=== PATIENT | female | born 1955 | race Two or more races ===

== ENCOUNTER 2018-07-17 19:09 | Emergency (ER) | payer BC ==
[~2018-07-17] VITALS: Ht 157.5 cm; Wt 80.0 kg
[~2018-07-17 19:09] MED LIST: AMLO5TAB4 PO; ERGO500013 PO; LEVO125T7 PO; MET25 PO; MTF1000T PO; RANI150T35 PO; SITA100T11 PO; VENL-42 PO
[2018-07-17 19:13] VITALS: Ht 157.5 cm; Wt 80.0 kg
[2018-07-17] MEDS ORDERED: CEFEPIME 2GM/50 ML (PMX) 50 ML IVPB STA (19:24)
[2018-07-17] MEDS ORDERED: SODIUM CHLORIDE 0.9% 1L BAG IV* STA (19:24)
[2018-07-17] MEDS ORDERED: ACETAMINOPHEN 500 MG TAB PO STA (19:25)
[2018-07-17] MEDS ORDERED: IBUPROFEN 800 MG TAB PO ONE (19:30)
[2018-07-17] MEDS ORDERED: VANCOMYCIN 1 GM (PMX) 250 ML IVPB ONE (19:30)
--- NOTE | 2018-07-17 21:01 | ERD ---
ER Documentation Chief Complaint Chief Complaint weakness x 3 days HPI This is a 63-year-old female with a history of [id number] diabetes mellitus and hypertension. The patient presents to the emergency department complaining of 5 days of generalized weakness and tactile fever shaking and chills. According to her daughter the patient developed her symptoms Friday, 5 days prior to arrival where she felt myalgias. She had a decrease in appetite. She did not take any antipyretics prior to arrival. She has not had a cough. The patient has a history of 1 kidney she had developed a kidney infection roughly 30 years prior to arrival that required a nephrectomy. The patient complains of mild frequency and urgency but no dysuria. She has been compliant with all of her medications. She denies any abdominal pain. She has no shortness of breath at rest or exertion. She denies any recent hospitalizations. She denies any recent sick contacts per ROS All systems reviewed and are negative except as per history of present illness. Medications Home Meds Active Scripts Acetaminophen* (Tylophen*) 500 Mg Capsule, 2 CAP PO Q8H PRN for PAIN AND OR ELEVATED TEMP, #20 CAP Prov:DEAN WILKERSON MD 07/17/18 Ibuprofen* (Motrin*) 800 Mg Tab, 800 MG PO Q6H PRN for PAIN AND OR ELEVATED TEMP, #30 TAB Prov:DEAN WIKLERSON MD 07/17/18 Cephalexin* (Keflex*) 500 Mg Capsule, 500 MG PO QID for 10 Days, CAP Prov:DEAN WILKERSON MD 07/17/18 Reported Medications Glimepiride* (Glimepiride*) 4 Mg Tablet, 4 MG PO WITH BREAKFAST DINNE, TAB 07/17/18 Zolpidem Tartrate* (Zolpidem Tartrate*) 10 Mg Tablet, 10 MG PO QHS PRN for INSOMNIA, #30 TAB 07/17/18 Trazodone Hcl* (Trazodone Hcl*) 50 Mg Tablet, 50 MG PO QAM, #60 TAB 07/17/18 Sitagliptin* (Januvia*) 100 Mg Tablet, 100 MG PO DAILY, #30 TAB 07/17/18 Methotrexate* (Methotrexate*) 2.5 Mg Tab, 10 MG PO Q TUES, TAB 07/17/18 Metformin Hcl* (Metformin Hcl*) 1,000 Mg Tablet, 1000 MG PO WITH BREAKFAST DINNE, #60 TAB 07/17/18 Ergocalciferol (Vitamin D2) (VITAMIN D2) 50,000 Unit Capsule, 34484 UNIT PO Q THURS, CAP 07/17/18 Amlodipine Besylate* (Norvasc*) 5 Mg Tablet, 5 MG PO DAILY, TAB 07/17/18 Discontinued Reported Medications Methotrexate* (Methotrexate*) 2.5 Mg Tab, 10 MG PO QTUE, TAB TAKE 4 TABLETS BY MOUTH EVERY Friday03/06/18 Ergocalciferol (Vitamin D2) (VITAMIN D2) 50,000 Unit Capsule, 25330 UNIT PO QTUE, CAP 03/06/18 Venlafaxine Hcl* (Venlafaxine Hcl ER*) 37.5 Mg Cap.er.24h, 37.5 MG PO DAILY, CAP 03/06/18 Sitagliptin* (Januvia*) 100 Mg Tablet, 100 MG PO DAILY, #30 TAB 03/06/18 Metformin* (Glucophage*) 1,000 Mg Tablet, 1000 MG PO BID, #60 TAB 03/06/18 Levothyroxine Sodium* (Levothyroxine Sodium*) 125 Mcg Tablet, 125 MCG PO BEFORE BREAKFAST, #30 TAB 03/06/18 Amlodipine Besylate* (Norvasc*) 5 Mg Tablet, 5 MG PO DAILY, TAB 03/06/18 Discontinued Scripts Ranitidine Hcl* (Zantac*) 150 Mg Tablet, 150 MG PO HS, #30 TAB Prov:KAEL PEDERSEN DO 03/06/18 Allergies Allergies: Coded Allergies: No Known Allergy (Unverified , 07/17/18) PMhx/Soc History of Surgery: Yes (R kidney removal, hyserectomy) Anesthesia Reaction: No Hx Neurological Disorder: No Hx Respiratory Disorders: No Hx Cardiac Disorders: No Hx Psychiatric Problems: No Hx Miscellaneous Medical Probl: Yes (DM) Hx Alcohol Use: No Hx Substance Use: No Hx Tobacco Use: No Smoking Status: Never smoker Physical Exam Vitals Vital Signs Date Temp Pulse Resp B/P (MAP) Pulse Ox O2 O2 Flow FiO2 Time Delivery Rate 07/17/18 99.8 98 18 132/86 96 Room Air 20:52 (101) 07/17/18 Nasal 2 20:03 Cannula 07/17/18 102.2 19:53 07/17/18 102.2 117 24 128/90 92 19:13 (103) Physical Exam Constitutional:Well-developed. Well-nourished. HEENT:Normocephalic. Atraumatic.Pupils were equal round reactive to light. Very dry mucous membranes.No tonsillar exudates. Neck: No nuchal rigidity. No lymphadenopathy. No posterior cervical spine tenderness or step-offs. Respiratory: Not using accessory muscles of respiration.Lungs were clear to auscultation bilaterally. No rhonchi. No rales. No wheezing. Cardiovascular: Regular rate regular rhythm.No murmurs. No rubs were appreciated.S1, S2 normal. Distal pulses are palpable 2+ bilaterally. GI: Abdomen was soft. Nontender. Non Distended. No pulsatile abdominal masses or bruits. No rebound. No guarding. Bowel sounds were present and normal. Muscle skeletal: Full range of motion of both the upper and lower extremities bilaterally.Normal muscle tone.No assymetrical calf tenderness or swelling. Skin: No petechia, no purpura. No lesions on the palms or the soles of the feet. No maculopapular rash. NEURO: Patient was alert, awake, orientated x3.No facial droop. Gait observed and normal with no ataxia.Speech had regular rate and rhythm. No focal neurological deficits. Result Diagram: 07/17/18194107/17/181941 Results 24 hrs Laboratory Tests Test 07/17/18 19:35 07/17/18 19:42 07/17/18 19:44 Urine Color YELLOW Urine Clarity CLOUDY Urine pH 6.0 Urine Specific [place] 1.012 Urine Ketones NEGATIVE mg/dL Urine Nitrite POSITIVE mg/dL Urine Bilirubin NEGATIVE mg/dL Urine Urobilinogen NEGATIVE mg/dL Urine Leukocyte Esterase 3+ Farhat/ul Urine Microscopic RBC 37 /HPF Urine Microscopic WBC > 182 /HPF Urine Squamous Epithelial Cells MODERATE /HPF Urine Bacteria MODERATE /HPF Urine Hemoglobin 2+ mg/dL Urine Glucose NEGATIVE mg/dL Urine Total Protein 1+ mg/dl White Blood Count 11.7 10^3/ul Red Blood Count 5.01 10^6/ul Hemoglobin 13.8 g/dl Hematocrit 41.2 % Mean Corpuscular Volume 82.2 fl Mean Corpuscular Hemoglobin 27.5 pg Mean Corpuscular 33.5 g/dl Hemoglobin Concent Red Cell Distribution Width 12.9 % Platelet Count 134 10^3/UL Mean Platelet Volume 13.0 fl Immature Granulocytes % 0.500 % Neutrophils % 78.9 % Lymphocytes % 7.6 % Monocytes % 12.8 % Eosinophils % 0.0 % Basophils % 0.2 % Nucleated Red Blood Cells % 0.0 /100WBC Immature Granulocytes # 0.060 10^3/ul Neutrophils # 9.2 10^3/ul Lymphocytes # 0.9 10^3/ul Monocytes # 1.5 10^3/ul Eosinophils # 0.0 10^3/ul Basophils # 0.0 10^3/ul Nucleated Red Blood Cells # 0.0 10^3/ul Prothrombin Time 13.4 Sec Prothrombin Time Ratio 1.0 INR International 1.01 Normalized Ratio Activated Partial Thromboplast 25.3 Sec Time Sodium Level 133 mmol/L Potassium Level 3.8 mmol/L Chloride Level 96 mmol/L Carbon Dioxide Level 25 mmol/L Anion Gap 12 Blood Urea Nitrogen 16 mg/dl Creatinine 0.99 mg/dl Est Glomerular Filtrat 56 mL/min Rate mL/min Glucose Level 314 mg/dl Calcium Level 9.0 mg/dl Total Bilirubin 0.5 mg/dl Direct Bilirubin 0.00 mg/dl Indirect Bilirubin 0.5 mg/dl Aspartate Amino 73 IU/L Transf (AST/SGOT) Alanine 70 IU/L Aminotransferase (ALT/SGPT) Alkaline Phosphatase 59 IU/L Troponin I < 0.012 ng/ml Total Protein 7.4 g/dl Albumin 3.8 g/dl Globulin 3.60 g/dl Albumin/Globulin Ratio 1.05 Amylase Level 89 U/L Lipase 229 U/L POC Venous Lactate 1.5 mmol/L Current Medications Medications Dose Sig/Ann Start Time Status Last (Trade) Ordered Route PRN Stop Time Admin Dose Reason Admin Sodium 2,400 ml BOLUS OVER 2 07/17/18 DC 07/17/18 Chloride HOURS STAT 19:24 19:53 (NS) IV* 07/17/18 19:25 Cefepime HCl 50 ml @ ONCE STAT 07/17/18 DC 07/17/18 100 mls/hr IVPB 19:24 19:59 07/17/18 19:53 Vancomycin 250 ml @ ONCE ONCE 07/17/18 DC 07/17/18 HCl 125 mls/hr IVPB 19:30 20:52 07/17/18 21:29 1,000 mg ONCE STAT 07/17/18 DC 07/17/18 Acetaminophen PO 19:25 19:53 (Tylenol 07/17/18 19:26 Tab) Ibuprofen 800 mg ONCE ONCE 07/17/18 DC 07/17/18 (Motrin) PO 19:30 19:53 07/17/18 19:31 Procedures/MDM This is 63-year-old female that presented to the emergency department Sirs criteria. Patient admitted placed on a chronic monitor continuous pulse oximetry and IV access was attempted by nursing. The patient's lactic acid was normal. However she had already received a 30 cc/kg bolus of normal saline and was started on antibiotics to treat sepsis of unclear etiology. The patient was hyperglycemic without ketosis and this was treated with IV fluids. 12 Lead EKG tracing ordered and reviewed by myself showed: Sinus tachycardia 120 bpm and no arrhythmia. AK interval normal. QRS duration normal. No ST segment elevation No ST segment depression. No changes consistent with acute ischemia. The patient is a significant urinary tract infection with pyelonephritis. Chest radiograph showed no infiltrates or pneumothorax. Observation Note: Time: 4 hours Family Hx: No Hypertension Evaluation: Multiple exams showed improving symptoms and no evidence of worsening of her symptoms. The patient stated she would prefer to be discharged and she was offered admission to the hospital. She stated she has good follow- up and she was now able to tolerate oral intake afebrile no longer tachycardic and her daughter and son were at bedside. She will be discharged home with Keflex. She was also given antipyretics. The patient was discharged home in fair condition. They were instructed to return to the emergency department at any time if there was any worsening of their condition. The patient stated they would follow up with their PCP in the next 24-48 hours to initiate a suitable medication regimen under the care of their PCP as well as to allow their PCP to monitor any drug reactions. The patient was discharged home with prescriptions after they gave informed consent to the new medication. They were also fully informed by myself on the adverse effects and adverse drug interactions in order to provide adequate safeguards to prevent possible adverse reactions to medications. Departure Diagnosis: Primary Impression: Pyelonephritis Additional Impression: Hyperglycemia without ketosis Condition: DEAN Leal MD Jul 17, 2018 21:01
[2018-07-17] MEDS ORDERED: AMLO5TAB4 PO (21:46)
[2018-07-17] MEDS ORDERED: ERGO500013 PO (21:46)
[2018-07-17] MEDS ORDERED: METF100010 PO (21:47)
[2018-07-17] MEDS ORDERED: MET25 PO (21:47)
[2018-07-17] MEDS ORDERED: TRAZ-111 PO (21:48)
[2018-07-17] MEDS ORDERED: ZOLP10TA5 PO (21:48)
[2018-07-17] MEDS ORDERED: SITA100T11 PO (21:48)
[2018-07-17] MEDS ORDERED: GLIM4TAB PO (21:49)
[2018-07-17] MEDS ORDERED: CEPH-443 PO (23:08)
[2018-07-17] MEDS ORDERED: ACET500C5 PO (23:08)
[2018-07-17] MEDS ORDERED: IBUP800T48 PO (23:08)
[2018-07-17 23:22] VITALS: BP 115/83; PULSE 85; RESP 17
== END 2018-07-17 23:22 | disposition home or self-care (01) ==
LOC: E/R 19:09
DX: N12 Tubulo-interstitial nephritis, not specified as acute or chronic (principal); E11.65 Type 2 diabetes mellitus with hyperglycemia; I10 Essential (primary) hypertension; R07.9 Chest pain, unspecified; Z79.84 Long term (current) use of oral hypoglycemic drugs
CPT/HCPCS: 36415; 71045; 80053; 81001; 82150; 83690; 84484; 85025; 85610; 85730; 86305; 87040; 87086; 87400; 93005; 96374; 96375; 99285; J0692; J3370; J7030; Z7610; 83605